=== PATIENT | female | born 1965 | race Caucasian/White ===

== ENCOUNTER 2018-07-09 07:09 | Day surgery (SDC) | payer BC, OTHER ==
[2018-07-08 13:41] VITALS: BMI 28.3
--- NOTE | 2018-07-09 07:12 | HP ---
History & Physical Update - History History: No Change - Physical Physical: No Change - Assessment Assessment: No Change - Plan Plan: No Change (Initial H&P is located in her paper chart. C/o Chronic neck/ shoulder pain with LUE radiculopathy. Here today for elective C5/7 ACDF under general anesthesia.)
[2018-07-09] MEDS ORDERED: oxyCODONE HCL 10 MG SUSTAINED ACTING TABLET PO STA (07:26)
[2018-07-09] MEDS ORDERED: MIDAZOLAM HCL 2 MG/2 ML SINGLE DOSE VIAL ONE ×2 (09:58→10:27)
[2018-07-09] MEDS ORDERED: DEXAMETHASONE SOD PHOSPHATE/PF 10 MG/ML SDV ONE (09:59)
[2018-07-09] MEDS ORDERED: BUPIVACAINE HCL/PF (5 MG/ML) 30 ML VIAL IJ ONE (09:59)
[2018-07-09] MEDS ORDERED: LIDOCAINE 1%/EPI 1:100000 (20 ML MULTI DOSE VIAL) ONE (10:18)
[2018-07-09] MEDS ORDERED: PROPOFOL 20 ML ONE ×8 (10:26→11:29)
[2018-07-09] MEDS ORDERED: SUCCINYLCHOLINE CHLORIDE 200 MG/10 ML VIAL ONE (10:27)
[2018-07-09] MEDS ORDERED: LIDOCAINE 1%/EPI 1:100000 (50 ML MULTI DOSE VIAL) INF ONE (10:50)
[2018-07-09] MEDS ORDERED: ceFAZolin SODIUM 1 GM VIAL ONE (10:57)
[2018-07-09] MEDS ORDERED: DEXAMETHASONE SOD PHOSPHATE 4 MG/1 ML VIAL ONE (10:57)
[2018-07-09] MEDS ORDERED: PHENYLEPHRINE HCL 10 MG/1 ML SINGLE DOSE VIAL ONE (11:38)
--- NOTE | 2018-07-09 12:37 | OP ---
Operative Note - Note: Operative Date: 07/09/18 Pre-Operative Diagnosis: Cervical stenosis with radiculopathy Operation: ACDF C5-C7 Post-Operative Diagnosis: Same as Pre-op Surgeon: Rickey Floyd Type Caster: Guilherme Cha Anesthesiologist/COMMERCIAL CENTER MANAGER: Laurie Lynn Anesthesia: General Specimens Removed: C5/6, C6/7 discs Estimated Blood Loss (mls): 20 Fluid Volume Replaced (mls): 1,000 Operative Report Dictated: Yes
--- NOTE | 2018-07-09 12:38 | SURG ---
Surgery Cook Italian Style Food Note Cook Italian Style Food: Guilherme Cha PA-C Date of Service: 07/09/18 Diagnosis: C5-C7 stenosis with radiculopathy Procedure: Anterior cervical discectomy fusion C5/6, C6/7; allograft implant x2, neuromonitoring I was present for the entirety of the operative procedure. For further detail, please refer to operative report. Visit type - Case Type Case Type: Scheduled - New patient This patient is new to me today: Yes Date on this admission: 07/09/18
[2018-07-09] MEDS ORDERED: oxyCODONE HCL 5 MG TABLET PO PRN ×3 (12:39→12:41)
[2018-07-09] MEDS ORDERED: ONDANSETRON 4 MG/2 ML VIAL IVPUSH PRN (12:41)
[2018-07-09] MEDS ORDERED: diazePAM 2 MG TABLET PO PRN (12:43)
[2018-07-09] MEDS ORDERED: LACTATED RINGERS SOLUTION 1,000 ML IV SCH ×2 (12:45)
[2018-07-09] MEDS ORDERED: ONDANSETRON 4 MG/2 ML VIAL IVPUSH ONE (12:52)
[2018-07-09] MEDS ORDERED: diazePAM 2 MG TABLET PO ONE (13:00)
[2018-07-09 14:22] VITALS: TEMP 98.4
[2018-07-09] MEDS ORDERED: CEFAZOLIN 1 GM/D5W 1 GM/50 ML BAG ONE (15:20)
[2018-07-09] MEDS ORDERED: CEFAZOLIN 1 GM/D5W 1 GRAM/50 ML BAG IVPB ONE (16:00)
[2018-07-09 16:54] VITALS: BP 117/57
[2018-07-09 16:57] VITALS: PULSE 68
--- NOTE | 2018-07-10 12:36 | OP ---
DATE OF OPERATION: 07/09/2018 PREOPERATIVE DIAGNOSIS: Cervical stenosis C5-6, C6-7. POSTOPERATIVE DIAGNOSIS: Cervical stenosis C5-6, C6-7. PROCEDURE PERFORMED: Anterior cervical diskectomy and fusion C5-6, anterior cervical diskectomy and fusion C6-7. SURGEON: Rickey Floyd MD ELECTRONIC SERVICE TECHNICIAN: IVELISSE Hameed ESTIMATED BLOOD LOSS: 50 mL. INTRAVENOUS FLUIDS: Per Anesthesia. ANESTHESIA: General/SCP block. COMPLICATIONS: There were none. DISPOSITION: Patient brought to the PACU in stable condition. INDICATION FOR SURGERY: The patient is a 52-year-old female who has been suffering from pain from her neck down her arms. X-rays and MRI were completed which show that she has cervical stenosis secondary to cervical herniated disk at C5-6 and C6- 7. She had gone through an exhaustive course of treatment for this including medications, physical therapy, as well as injections. Unfortunately her pain continued to persist despite all this. At this point the risks, benefits, and alternatives were discussed and the patient consented to surgery. DESCRIPTION OF PROCEDURE: Patient was brought to the operating room by anesthesia staff. After appropriate patient identification was performed, general anesthesia was given. An SCP block was also given. Patient was positioned supine on the OR bed. Her arms were extended to the sides. All areas of bony prominence were well padded at this time. A shoulder roll was placed underneath her neck to extend her neck to the point that she could tolerate in preoperative holding area. A needle was taped onto the neck to kimber off the C5-6 level. X-ray was taken to confirm this was correct. The needle was removed and 10 mL of lidocaine with epinephrine was injected in her neck at this time. The neck was prepped and draped in a sterile manner. At this point a timeout was completed. A 2-inch incision was made in the left side of her neck. Dissection was carried down to platysma. The platysma was cut in line with the skin incision. Next, the interval between the sternocleidomastoid and strap muscles was developed. Next, the interval between the carotid sheath and the tracheal esophagus was developed. Peanuts were used to elevate off the prevertebral fascia. Needle was placed into the C5-6 disk. X-ray was taken to confirm this was correct. Needle was removed and the longus colli muscles were elevated, and retractor plates were placed in. A Meade pin was placed in the body of C5 and C7. A knife was used to incise the disk and distraction was applied. At this point the microscope was brought in. Using a series of pituitaries, Kerrison's and curettes, diskectomy was completed. Endplates were decorticated at this time. Cages filled with bone graft were placed into C5-6 and C6-7. A screw was placed in the body of C5. Screw was placed in the body of C6. Screw was placed in the body of C7. Meade pins removed. AP and lateral x-rays confirmed the instrumentation remained in good position. Final tightening was performed. The platysma closed with 2-0 Vicryl. Skin was closed with 3-0 Monocryl suture. Dermabond was applied. Steri-Strips were applied. She was placed supine on the OR bed, taken to PACU in stable condition. Shayan MATHEW/[id number] MTDD
--- NOTE | 2018-07-13 14:12 | PATH ---
Surgical Pathology Report Patient Name: DEIDRE DESAI [facility]. Rec. #: [id number] /Age/Gender: 1965 (Age: 52) / F Account: [id number] Location: [facility] AMBULATORY Taken: 07/09/2018 Received: 07/09/2018 Reported: 07/13/2018 Physicians: Rickey Floyd M.D. Specimen(s) Received C5-6,C6-7 CERVICAL DISC Clinical History Cervical stenosis Final Diagnosis C5-6, C6-7 CERVICAL DISC, DISCECTOMY: CARTILAGE WITH DEGENERATIVE CHANGES. Electronically Signed Sarai Heath M.D. Gross Description Received in formalin labeled "C5-6, C6-7," is a 4.0 x 2.5 x 0.4 cm aggregate of david fragments of fibrocartilaginous tissue. A school admissions representative portion is submitted in one cassette. /07/10/201807/10/2018
== END 2018-07-09 16:40 | disposition home or self-care (01) ==
LOC: FASU 07:09
PROVIDERS: ATTEND Orthopaedic Surgery Orthopaedic Surgery of the Spine
PROC: 0RG10A0 Fusion of Cervical Vertebral Joint with Interbody Fusion Device, Anterior Approach, Anterior Column, Open Approach (ICD-10-PCS; 2018-07-09)
PROC: 0RG10K0 Fusion of Cervical Vertebral Joint with Nonautologous Tissue Substitute, Anterior Approach, Anterior Column, Open Approach (ICD-10-PCS; 2018-07-09)
PROC: 0RB30ZZ Excision of Cervical Vertebral Disc, Open Approach (ICD-10-PCS; principal; 2018-07-09 09:00)
DX: M48.02 Spinal stenosis, cervical region (principal)
CPT/HCPCS: 22551; 22552; 22845; 22853; C1889; 72050-TC-FY; 84703; 88304-TC; 94760